=== PATIENT | male | born 1935 | race Caucasian/White ===

== ENCOUNTER 2024-09-14 14:09 | Inpatient (IN) | payer MEDICARE, SELFPAY ==
[2024-09-14] VITALS (7 sets, daily range): BP systolic 112–129; BP diastolic 49–70; PULSE 74–104; RESP 18–26; TEMP 36.3–36.4; O2SAT 95–97; BMI 17.8
--- NOTE | ~2024-09-14 | US_ITS ---
CLINICAL HISTORY: RLE edema Right lower extremity venous duplex ultrasound Comparison: None Findings: The visualized deep veins are fully compressible with complete color Doppler and normal spectral Doppler. Rouleaux flow is seen throughout. No popliteal cyst. Impression: No deep vein thrombosis. This document has been electronically signed by: Mora Sterling MD on 09/14/2024 16:22:49
--- NOTE | ~2024-09-14 | XR_ITS ---
CLINICAL HISTORY: diminshed lung sounds Chest Radiograph Comparison: None Findings: No cardiomegaly. Status post CABG. Normal mediastinal contours. No pneumothorax. No opacity. No pleural effusion. Normal upper abdomen. No acute fracture. Impression: No acute findings. This document has been electronically signed by: Mora Sterling MD on 09/14/2024 16:46:16
--- NOTE | ~2024-09-14 | CT_ITS ---
CLINICAL HISTORY: lower abd pain. diarrhea CT abdomen and pelvis with contrast Comparison: None Findings: No consolidation at the lung bases. Unremarkable gallbladder. Low attenuating lesions in the liver measure up to 5.4 cm. Right renal cyst. Right nephrolithiasis is punctate. Moderate right hydroureteronephrosis. No left hydronephrosis or nephrolithiasis. There is a heterogeneous mass in the pelvis with calcifications measuring 12.2 x 12.8 x 10.7 cm. The mass extends along the superior aspect of the bladder with loss of the fat plane. The mass compresses the bladder. There are numerous stones in the posterior aspect of the bladder measuring up to 1.2 cm. The other solid organs are unremarkable. Small hiatal hernia. No bowel dilation. No definitive bowel wall thickening. The appendix is not visualized. Colonic diverticulosis. The right aspect of the sigmoid colon is in continuity with the mass (series 2 images 54 through 59). There is liquid stool throughout the colon No aneurysm. Severe calcified atherosclerotic disease. The pelvic mass displaces the right common/external iliac artery superiorly]. Small ascites. Extensive omental nodularity No acute osseous abnormality. Sacral perineural cysts. 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 The definitive origin of the mass is not identified. The mass may originate from or invade the bladder and colon. The mass obstructs the right distal ureter and causes moderate hydroureteronephrosis. 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 There is malignant ascites with omental caking. This document has been electronically signed by: Mora Sterling MD on 09/14/2024 17:09:35
--- NOTE | 2024-09-14 14:27 | ED_ITS ---
HPI - General Adult General Chief complaint: General Medical Stated complaint: RLE SWELLING X2D PER EMS Time Seen by Provider: 09/14/24 14:27 Source: patient, EMS, RN notes reviewed and old records reviewed Mode of arrival: EMS History of Present Illness ED Provider: Nicky Koenig PA-C HPI narrative: 88 y/o male with a PMHx quadruple bypass, HLD, presenting to the ED c/o atraumatic right lower extremity edema x4 days ago. Also reports increasing lethargy, generalized weakness, & lower abdominal pain w/diarrhea. Pts reports 25lb weight loss in the past 2 months & anorexia. states pt is unable to ambulate without assistance for the past few months, with multiple falls to knees due to weakness/legs giving out, w/o head trauma or LOC. Denies chest pain, SOB, nausea/vomiting, and lower extremity pain or discomfort. Related Data Allergies Allergy/AdvReac Type Severity Reaction Status Date / Time No Known Allergies Allergy Unverified 09/14/24 14:32 [No Known Allergies*] Review of Systems 2 Review of Systems: Yes all other systems are reviewed and are negative Constitutional: Constitutional: Reports as per HPI [facility] Past Medical History Attestation statement: The following information was validated with the patient. Source: old records reviewed Social History Social History Use of substances other than those prescribed or required for medical reasons: No Advance Directives: No Advance Directives Information Provided: Yes Physical Exam ED Vital Signs: Vital Signs - 24 hr 09/14/24 14:25 09/14/24 15:03 Temperature 97.4 F 97.6 F Pulse Rate 98 91 Respiratory Rate 18 22 H Blood Pressure 126/64 116/63 Pulse Oximetry 97 97 Oxygen Delivery Method Room Air Room Air BMI result Body Mass Index 17.8 Const General: cooperative, no acute distress and ill appearing chronically Orientation/consciousness: patient oriented x3 Limitations: no limitations HENMT Head: Yes normal to inspection and Yes atraumatic Ears: hearing grossly normal bilaterally General nose exam: Normal external nose present Face and sinus: Yes normal facial exam Eyes General: appearance normal, both eyes and all related structures EOM: EOMs intact bilaterally Neck Neck: Yes normal visual inspection and Yes no meningeal signs Resp Effort & Inspection: normal respiratory effort and no respiratory distress Auscultation: diminished lung sounds bilateral (> left) Cardio Rate: regular rate Heart sounds: S1 normal heart sound present and S2 normal heart sound present GI Inspection: Yes normal to inspection Palpation (GI): Soft to palpation, Tenderness to palpation present (GI) (lower abdomen w/guarding) with no rebound tenderness, no guarding and not rigid General: Yes no CVA tenderness Back/Spine/Pelvis Back: no CVA tenderness Skin Rashes: no rashes Wounds: no wounds Neuro General: patient oriented x3, tone normal and no meningeal signs Cranial nerves: Yes CN's II-XII intact bilaterally Gait exam (Neuro): Normal gait present Extrem General: Yes edema (4+ RLE pitting edema extending to thigh) Course Course Course Narrative: -1536--leukocytosis of 34.8 with 23% bands. Mild anemia, unknown baseline >> continued low suspicion for severe sepsis at this time > suspect lab abnormalities are from underlying undiagnosed malignancy, however will empirically cover with IV Cefepime -potassium 5.3, slightly hemolyzed. ANTHONY with a BUN of 44 and creatinine of 2.02 -CRP elevated to 9.6. -1630--ED care transferred to [facility] pending remaining labs, viral testing, CXR, ultrasound, and CT AP. Anticipated admission Medical Decision Making Medical Decision Making MDM Narrative: 88 y/o male with a PMHx quadruple bypass, HLD, presenting to the ED c/o atraumatic right lower extremity edema x4 days ago. Also reports increasing lethargy, generalized weakness, & lower abdominal pain w/diarrhea. Pts reports 25lb weight loss in the past 2 months & anorexia. On exam vital signs stable, NAD, chronically ill-appearing, diminished lung sounds throughout > left, abdomen soft with lower tenderness + guarding, +RLE 4+ pitting edema extending entire leg. Neurovascularly intact distally. Concern for DVT vs malignancy vs metabolic/infectious etiologies vs gastroenteritis. Rule out appendicitis/diverticulitis. Low suspicion for severe sepsis at this time. Lower suspicion for ACS/PE or dissection Plan: EKG, labs, UA, CXR, CT AP, ultrasound, anticipated admission Please refer to course for remaining clinical decision making, interpretation of labs/imaging results, and discussions with consultants and/or family members. Differential Diagnosis Differential Diagnoses: The differential diagnosis associated with the presentation includes As above Admission/Observation Consideration of admission/observation: Escalation of care including admission/observation considered Consult Healthcare Provider Management of the patient was discussed with: Hospitalist Lab Data MDM Lab Attestation statement: I reviewed the patient's lab results. 09/14/24 15:05 09/14/24 15:05 Labs: Lab Results 09/14/24 Range/Units 15:05 WBC 34.8 H* (4.8-10.8) X10*3/uL RBC 3.07 L (4.60-5.80) X10*6/uL Hgb 9.2 L (14.0-18.0) g/dl Hct 29.7 L (42.0-52.0) % MCV 96.7 (80.0-98.0) fL MCH 30.0 (27.0-33.0) pg MCHC 31.0 (31.0-36.0) g/dl RDW 16.1 H (11.0-16.0) % Plt Count 378 (160-400) X10*3/uL MPV 9.1 L (9.4-12.4) fL Immature Gran % (Auto) Cancelled Neut % (Auto) Cancelled Lymph % (Auto) Cancelled [place] % (Auto) Cancelled Eos % (Auto) Cancelled Baso % (Auto) Cancelled Lymph # (Auto) Cancelled [place] # (Auto) Cancelled Eos # (Auto) Cancelled Baso # (Auto) Cancelled Abs Immat Gran (auto) Cancelled Absolute Neuts (auto) Cancelled Absolute Nucleated RBC 0.000 (0.0-0.012) X10*3/uL Nucleated RBC % (auto) 0.0 (0.0-0.2) /100WBC Neutrophils % (Manual) 68 (45-73) % Band Neutrophils % 23 H (3-5) % Lymphocytes % (Manual) 3 L (20-40) % Monocytes % (Manual) 4 (2-11) % Eosinophils % (Manual) 2 (0-4) % Abs Neuts (Manual) 31.7 H (2.0-8.3) X10*3/uL Lymphocytes # (Manual) 1.0 L (1.2-4.9) X10*3/uL Monocytes # (Manual) 1.4 H (0.1-1.2) X10*3/uL Eosinophils # (Manual) 0.7 H (0.0-0.4) X10*3/uL Toxic Granulation PRESENT Toxic Vacuolation PRESENT Platelet Estimate NORMAL (NORMAL) Plt Morphology Comment NORMAL RBC Morphology NORMAL Smear Tech's Comments MANUAL DIFF Sodium 139 (135-145) mmol/L Potassium 5.3 H (3.3-5.1) mmol/L Chloride 105 (96-108) mmol/L Carbon Dioxide 22 (22-29) mmol/L Anion Gap 17 (12-20) BUN 44 H (9-16) mg/dL Creatinine 2.02 H (0.5-1.4) mg/dL Estim Creat Clear Calc 20.9 Estimated GFR 31 Random Glucose 96 (60-115) mg/dL Calcium 9.1 (8.4-10.2) mg/dL Magnesium 2.2 (1.6-2.6) mg/dL Total Bilirubin 0.3 (0.0-1.0) mg/dL Direct Bilirubin 0.1 (0.0-0.5) mg/dL AST 50 H (5-37) U/L ALT 35 (0-40) U/L Alkaline Phosphatase 107 (39-117) U/L C-Reactive Protein 9.67 H (< or = 0.50) mg/dL Total Protein 7.6 (6.5-8.0) g/dL Albumin 2.8 L (3.5-5.0) g/dL Lipase 14 (8-78) U/L Independent Interpretation I performed an independent interpretation of an: EKG (My interpretation EKG sinus rhythm with first-degree AV block rate of 92. QRS 112. Premature ventricular compresses no longer present when compared to prior. No STEMI), Plain X-Ray, Ultrasound and CT Scan Radiology Impression Discussion of test interpretation with radiology: I have reviewed the radiologist's reading. Independent Historian Clinical information obtained from an independent historian. History obtained from or confirmed by: Spouse and EMS External Record Review External record reviewed: Inpatient record, Office record, Outpatient record, Prior outpatient labs, Prior outpatient radiology, Primary care record and Outside ED record Tests considered The following testing was considered but not selected: As above Prescription Management I considered prescription management with: Other Chronic Conditions Patient?s care impacted by: Other (CAD) Social Determinants Patient?s care significantly limited by Social Determinants of Health including: Other Social Determinant of Health Critical Care Time Critical Care Time Critical Care Time: Yes Total Critical Care Time: 45 Attestation: I have personally provided critical care time exclusive of time spent on separately billable procedures. Time includes review of lab data, radiology results, discussion with consultants, and monitoring for potential decompensation. Intervention performed as documented. Discharge Plan Discharge Clinical Impression: Leukocytosis, Edema of right lower extremity, Abdominal pain Patient Disposition: Still a Patient Print Language: Luxembourger
--- NOTE | 2024-09-14 14:38 | ECG_ITS ---
Test Reason : TACHY Blood Pressure : */* mmHG Vent. Rate : 92 BPM Atrial Rate : 92 BPM P-R Int : 212 ms QRS Dur : 112 ms QT Int : 368 ms P-R-T Axes : 88 -64 91 degrees QTcB Int : 455 ms Sinus rhythm with 1st degree A-V block Left axis deviation RSR' or QR pattern in V1 suggests right ventricular conduction delay Nonspecific T wave abnormality Abnormal ECG When compared with ECG of 29-Oct-2015 09:06, Premature ventricular complexes are no longer Present RSR' pattern in V1 has replaced Right bundle branch block Referred By: Nicky Koenig Electronically Signed By: Deep Lares
[2024-09-14 15:12] LABS: Hematocrit 29.7 % (42.0-52.0); Hemoglobin 9.2 g/dl (14.0-18.0); Mean Corpuscular Volume 96.7 fL (80.0-98.0); Mean Platelet Volume 9.1 fL (9.4-12.4); Platelet Count 378 X10*3/uL (160-400); Red Blood Count 3.07 X10*6/uL (4.60-5.80); Red Cell Distribution Width 16.1 % (11.0-16.0)
[2024-09-14 15:14] LABS: White Blood Count 34.8 X10*3/uL (4.8-10.8)
--- NOTE | 2024-09-14 15:24 | PC.NURSE ---
Pt presents to ED via EMS from home, reports right lower leg edema/swelling X4 days. Called his PCP who told him to come in to ER due to possible clot. also reports general weakness, multiple falls to his knees (no head hits), and weight loss >20 pounds in last 2 months. Alert and oriented, breathing slightly elevated, skin pale and dry, pt very thin.
[2024-09-14 15:31] LABS: SLIDE REVIEW MANUAL DIFF
[2024-09-14 15:35] LABS: Neutrophils Percent Manual 68 % (45-73)
[2024-09-14 15:37] LABS: Band Neutrophils Percent 23 % (3-5); Eosinophils Absolute Manual 0.7 X10*3/uL (0.0-0.4); Eosinophils Percent Manual 2 % (0-4); Lymphocytes Percent Manual 3 % (20-40); Monocytes Absolute Manual 1.4 X10*3/uL (0.1-1.2); Monocytes Percent Manual 4 % (2-11); Neutrophils Absolute Manual 31.7 X10*3/uL (2.0-8.3)
[2024-09-14 15:38] LABS: RBC Morphology NORMAL; Toxic Granulation PRESENT
[2024-09-14 15:39] LABS: Platelet Estimate NORMAL (NORMAL); Platelet Morphology Comment NORMAL; Toxic Vacuolation PRESENT
[2024-09-14 15:42] LABS: Alanine Aminotransferase 35 U/L (0-40); Albumin Level 2.8 g/dL (3.5-5.0); Anion Gap 17 (12-20); Aspartate Amino Transferase 50 U/L (5-37); Bilirubin Direct 0.1 mg/dL (0.0-0.5); Bilirubin Total 0.3 mg/dL (0.0-1.0); Blood Urea Nitrogen 44 mg/dL (9-16); C Reactive Protein 9.67 mg/dL (< or = 0.50); Calcium 9.1 mg/dL (8.4-10.2); Carbon Dioxide 22 mmol/L (22-29); Chloride 105 mmol/L (96-108); Creatinine Clr Calc Pharmacy 20.9; Estimated Glomerular Filt Rate 31; Glucose Random 96 mg/dL (60-115); Lipase 14 U/L (8-78); Magnesium 2.2 mg/dL (1.6-2.6); Potassium 5.3 mmol/L (3.3-5.1); Sodium 139 mmol/L (135-145); Total Protein 7.6 g/dL (6.5-8.0)
[2024-09-14 15:55] LABS: Alkaline Phosphatase 107 U/L (39-117)
[2024-09-14 16:16] LABS: INTERNATIONAL NORM RATIO 1.1 (0.9-1.1); Prothrombin Time 12.3 SEC (10.9-12.4)
[2024-09-14 16:19] LABS: Partial Thromboplastin Time 27.3 SEC (26.0-36.8)
[2024-09-14 16:21] LABS: Erythrocyte Sedimentation Rate 107 MM/HR (0-15)
[2024-09-14] MEDS: cefEPime HCl/D5W 2 GM/50 ML PIGGYBACK IV (16:35)
[2024-09-14 16:39] LABS: Lactic Acid 3.8 mmol/L (0.5-2.0)
[2024-09-14] MEDS: SODIUM CHLORIDE 1689 ML IV (16:57)
[2024-09-14 17:05] LABS: Influenza A PCR NEGATIVE (Negative); Influenza B PCR NEGATIVE (Negative); Resp Syncy Virus RNA Qual PCR NEGATIVE (Negative); SARS COV2 PCR INHOUSE NEGATIVE (Negative)
[2024-09-14 17:31] LABS: Appearance Urine Turbid; Color Urine Dark Yellow; Glucose Urine UA Negative (Negative); Leukocyte Esterase Urine Moderate (2+) (Negative); Nitrite Urine Negative (Negative); PH 5.5 (5.0-9.0); UMIC TRIGGER UACC YES; Urine Blood Large (3+) (Negative); Urine Ketones Negative (Negative); Urine Protein 100 (2+) mg/dL (Neg-Trace)
[2024-09-14 17:44] LABS: Bacteria Urine Trace (None Seen); Granular Casts Urine Present; RBC Urine >20 /HPF (0-2); UACC Culture Trigger YES; WBC Urine >50 /HPF (0-5)
[2024-09-14 18:01] LABS: Reflex Lactate? Lactic Acid Added
--- NOTE | 2024-09-14 18:05 | PC.NURSE ---
Bladder scan done post void, only approx 75 mL void. Unable to complete bladder scan, multiple pockets of fluids in the pelvic area. Very hard to find the bladder. Provider aware and reported to hold off on the styles
--- NOTE | 2024-09-14 18:28 | PHA.MEDREC ---
Addendum entered by Toña Godwin RPh 09/14/24 18:47: reviewed by [facility]. Original Note: Pharmacy Consult ? Medication Reconciliation Pharmacy has completed the medication reconciliation. Spoke to pt's spouse to confirm meds, which brought a list.
[2024-09-14 18:41] LABS: ~Lactic Acid-LAB USE ONLY 1.8 mmol/L (0.5-2.0)
--- NOTE | 2024-09-14 18:48 | P.HPHOSP_ITS ---
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 Today had some blood in his urine. In the ED, found to have leukocytosis of 34.8k with 23% bands as well as ANHTONY with SCr 2.02 with baseline of 1 per [facility] records. Lactate of 3.8. No DVT on venous duplx US of the legs. CT of the abdomen and pelvis showed a large 12.8 cm pelvic mass; unclear whether it originates in the colon or the bladder. It is causing obstruction of the right distal ureter with moderate hydronephrosis. There are hepatic metastases and omental caking with ascites. He was given cefepime due to pyuria and bacteruria. He states he had a Cologuard 2-3 years ago that was normal. Prior colonoscopy over 10 years ago and no history of abnromality on scope. Review of Systems 2 Review of Systems: Yes all other systems are reviewed and are negative PMFSH Social History Patient Tobacco Use Status: Never used Tobacco Use of substances other than those prescribed or required for medical reasons: No Advance Directives: No Advance Directives Information Provided: Yes Nutrition Risks: No Nutritional Risk Meds Allergies Allergy/AdvReac Type Severity Reaction Status Date / Time No Known Allergies Allergy Unverified 09/14/24 14:32 [No Known Allergies*] Active Medications: Current Medications Atorvastatin Calcium (Atorvastatin Calcium 20 Mg Tablet) 20 mg PO DAILY [facility] Carvedilol (Carvedilol 3.125 Mg Tablet) 3.125 mg PO BID [facility]; Protocol Home Medications ?Medication ?Instructions ?Recorded ?Confirmed ?Last Taken ?Type aspirin 81 mg tablet,delayed 81 mg PO DAILY 09/14/24 09/14/24 09/14/24 09:00 History release atorvastatin 20 mg tablet 20 mg PO DAILY 09/14/24 09/14/24 09/14/24 09:00 History carvedilol 3.125 mg tablet 3.125 mg PO BIDWM 09/14/24 09/14/24 09/14/24 09:00 History tamsulosin 0.4 mg capsule 0.4 mg PO DAILY 09/14/24 09/14/24 09/14/24 09:00 History vitamin B complex 1 cap PO DAILY 09/14/24 09/14/24 09/14/24 09:00 History Physical Exam 2 Vital Signs and Narrative: Vital Signs: Last Vital Signs Temp 97.6 F 09/14/24 15:03 Pulse 104 H 09/14/24 18:17 Resp 22 H 09/14/24 18:17 BP 118/63 09/14/24 18:17 Pulse Ox 95 09/14/24 18:07 O2 Del Method Room Air 09/14/24 18:07 BMI result Body Mass Index 17.8 Gen: in no acute distress but thin/cachectic with muscle wasting apparent HEENT: sclera anicteric, moist mucus membranes Neck: supple Lungs: clear to auscultation bilaterally Heart: regular rate and rhythm, no murmurs Abd: distended but non-tender with small fluid wave Ext: 3+ RLE edema Skin: warm/well-perfused Neuro: alert and oriented x3, no focal findings Psych: appropriate affect Results Labs 09/15/24 04:34 09/15/24 04:34 Labs: Laboratory Results - last 24 hr 09/14/24 09/14/24 09/14/24 15:05 15:56 15:57 MCV 96.7 MCH 30.0 MCHC 31.0 RDW 16.1 H Plt Count 378 MPV 9.1 L Immature Gran % (Auto) Cancelled Neut % (Auto) Cancelled Lymph % (Auto) Cancelled [place] % (Auto) Cancelled Eos % (Auto) Cancelled Baso % (Auto) Cancelled Lymph # (Auto) Cancelled [place] # (Auto) Cancelled Eos # (Auto) Cancelled Baso # (Auto) Cancelled Abs Immat Gran (auto) Cancelled Absolute Neuts (auto) Cancelled Absolute Nucleated RBC 0.000 Nucleated RBC % (auto) 0.0 Neutrophils % (Manual) 68 Band Neutrophils % 23 H Lymphocytes % (Manual) 3 L Monocytes % (Manual) 4 Eosinophils % (Manual) 2 Abs Neuts (Manual) 31.7 H Lymphocytes # (Manual) 1.0 L Monocytes # (Manual) 1.4 H Eosinophils # (Manual) 0.7 H Toxic Granulation PRESENT Toxic Vacuolation PRESENT Platelet Estimate NORMAL Plt Morphology Comment NORMAL RBC Morphology NORMAL Smear Tech's Comments MANUAL DIFF ESR 107 H PT 12.3 INR 1.1 APTT 27.3 Anion Gap 17 Estim Creat Clear Calc 20.9 Estimated GFR 31 Random Glucose 96 Lactic Acid 3.8 H* Lactic Acid F/U @ 2Hr Calcium 9.1 Magnesium 2.2 Total Bilirubin 0.3 Direct Bilirubin 0.1 AST 50 H ALT 35 Alkaline Phosphatase 107 C-Reactive Protein 9.67 H Total Protein 7.6 Albumin 2.8 L Lipase 14 Urine Color Urine Appearance Urine pH Ur Specific [place] Urine Protein Urine Glucose (UA) Urine Ketones Urine Blood Urine Nitrite Ur Leukocyte Esterase Urine RBC Urine WBC Ur Squamous Epith Cells Urine Bacteria Hyaline Casts Granular Casts Influenza Type A (PCR) NEGATIVE Influenza Type B (PCR) NEGATIVE RSV RNA Qual (PCR) NEGATIVE SARS-CoV-2 RNA (RT-PCR) NEGATIVE 09/14/24 09/14/24 17:25 18:18 MCV MCH MCHC RDW Plt Count MPV Immature Gran % (Auto) Neut % (Auto) Lymph % (Auto) [place] % (Auto) Eos % (Auto) Baso % (Auto) Lymph # (Auto) [place] # (Auto) Eos # (Auto) Baso # (Auto) Abs Immat Gran (auto) Absolute Neuts (auto) Absolute Nucleated RBC Nucleated RBC % (auto) Neutrophils % (Manual) Band Neutrophils % Lymphocytes % (Manual) Monocytes % (Manual) Eosinophils % (Manual) Abs Neuts (Manual) Lymphocytes # (Manual) Monocytes # (Manual) Eosinophils # (Manual) Toxic Granulation Toxic Vacuolation Platelet Estimate Plt Morphology Comment RBC Morphology Smear Tech's Comments ESR PT INR APTT Anion Gap Estim Creat Clear Calc Estimated GFR Random Glucose Lactic Acid Lactic Acid F/U @ 2Hr 1.8 Calcium Magnesium Total Bilirubin Direct Bilirubin AST ALT Alkaline Phosphatase C-Reactive Protein Total Protein Albumin Lipase Urine Color Dark Yellow Urine Appearance Turbid Urine pH 5.5 Ur [address] [place] 1.020 Urine Protein 100 (2+) H Urine Glucose (UA) Negative Urine Ketones Negative Urine Blood Large (3+) H Urine Nitrite Negative Ur Leukocyte Esterase Moderate (2+) H Urine RBC >20 H Urine WBC >50 H Ur Squamous Epith Cells 11-20 Urine Bacteria Trace Hyaline Casts 6-10 Granular Casts Present Influenza Type A (PCR) Influenza Type B (PCR) RSV RNA Qual (PCR) SARS-CoV-2 RNA (RT-PCR) Imaging Radiologist's Impressions: CT A/P 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 The definitive origin of the mass is not identified. The mass may originate from or invade the bladder and colon. The mass obstructs the right distal ureter and causes moderate hydroureteronephrosis. 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 There is malignant ascites with omental caking. RLE venous duplex US No deep vein thrombosis. Assessment and Plan (1) Pelvic mass: Status: Acute Plan 88yo M with CAD s/p CABG presenting with 2 mo of involuntary weight loss and 4 days of RLE leg swelling, abominal discomfort, and now 1 day of intermittent hematuria. Found to have large pelvic mass with obstructive hydroureteronephrosis. Unclear whether mass originates from colon or bladder. There are hepatic metastases and omental caking with ascites. 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 Consult Oncology, Gen Surg, and Urology. Paracentesis with cytology in AM. NPO after midnight in case of any surgical procedures. SIRS physiology + lactic acidosis - Was empirically covered with cefepime and got IV fluids but suspect this is due to malignancy and not due to sepsis, severe or otherwise. However, will continue with antibiotic coverage with ceftriaxone for now. Obstructive ANTHONY - Montior SCr. Place Sam Moderate pr/dixie malnutrition - Supplements CAD - Hold ASA for hematuria; continue statin and carvedilol VTE ppx - SCDs; hold heparin due to hematuria dispo - TBD code status - DNR/DNI per pt's I anticipate that the patient will stay at least 2 midnights as an inpatient in the hospital due to the above reasons. It is neither reasonable nor safe to care for them in a less acute setting. Quality Stroke Does the patient have a stroke diagnosis?: No VTE Prior VTE?: No VTE Risk Level:: Medical - moderate - high VTE Device Contraindication: N/A - Device Ordered VTE Drug Contraindication: Treatment Not Indicated
--- NOTE | 2024-09-14 19:54 | P.HPGS_ITS ---
History of Present Illness History of Present Illness Date of Service: 09/16/24 Chief complaint: pelvic mass, ANTHONY, malignant ascities Narrative: Luis Herron is a 88 year old male history of coronary disease, with status post CABG, was brought to the ER today because of what he describes as swelling of his right lower leg and foot. This has been going on for several days. He describes discomfort with this. He also mentioned that he was having abdominal discomfort on lower abdomen. He says that this is not really pain. Therefore had a CT scan which showed a large pelvic mass 12.7 cm in diameter He also has associated hydronephrosis on the right side He says he has good bowel movements. He denies having constipation or diarrhea. He denies any nausea or vomiting. He says he does not really have abdominal pain and says he has more of discomfort on the lower abdomen. He denies problems with urination. He does admit to anorexia and some weight loss. He says that he may have lost about 10 lb the last 2 months or so. He says he had a Cologuard test about 4 years ago he was told this was normal He is uncertain if we ever had any colonoscopy in the past. Review of his records also show he had a stroke in 2016. Review of Systems Constitutional: Constitutional: Denies chills, Denies fever(s), Reports lethargy, Reports weakness and Reports weight loss Cardiovascular: Cardiovascular: Denies chest pain, Denies chest pain at rest and Denies dyspnea Respiratory: Respiratory: Denies cough and Denies dyspnea Gastrointestinal: Gastrointestinal: Denies hematochezia, Denies change in bowel habits and Denies constipation Comments: Lower abdominal discomfort Genitourinary: Genitourinary: Denies difficulty urinating Musculoskeletal: Musculoskeletal: Reports muscle weakness Neurologic: Reports weakness ON LICENSE OF [facility] Social History Social History Patient Tobacco Use Status: Never used Tobacco service: No Meds Allergies Allergy/AdvReac Type Severity Reaction Status Date / Time No Known Allergies Allergy Unverified 09/14/24 14:32 [No Known Allergies*] Active Medications: Current Medications Acetaminophen (Acetaminophen 325 Mg Tablet) 650 mg PO Q6H PRN PRN Reason: Pain, Mild 1-3,fever,headache Atorvastatin Calcium (Atorvastatin Calcium 20 Mg Tablet) 20 mg PO DAILY ROBYN Calcium Carbonate (Calcium Carbonate 750 Mg Tab.Chew) 750 mg PO Q4H PRN PRN Reason: Heartburn Carvedilol (Carvedilol 3.125 Mg Tablet) 3.125 mg PO BID [facility]; Protocol Magnesium Hydroxide (Milk Of Magnesia 30 Ml Oral.Susp) 30 ml PO DAILY PRN PRN Reason: Constipation Melatonin (Melatonin 3 Mg Tablet) 6 mg PO BEDTIME PRN PRN Reason: Insomnia Ondansetron HCl (Ondansetron Hcl 4 Mg/2 Ml Vial) 4 mg IVPUSH Q8H PRN PRN Reason: Nausea and Vomiting Sodium Chloride (0.9 % Sodium Chloride Flush 3 Ml Syringe) 3 ml IVFLUSH QSHIFT [facility] Home Medications ?Medication ?Instructions ?Recorded ?Confirmed ?Last Taken ?Type tamsulosin 0.4 mg capsule 0.4 mg PO DAILY 09/14/24 09/14/24 09/14/24 09:00 History Physical Exam Vital Signs: Vital Signs: Last Vital Signs Temp 97.6 F 09/14/24 15:03 Pulse 104 H 09/14/24 18:17 Resp 22 H 09/14/24 18:17 BP 118/63 09/14/24 18:17 Pulse Ox 95 09/14/24 18:07 O2 Del Method Room Air 09/14/24 18:07 BMI result Body Mass Index 17.8 Const: Other: Answers questions although does not seem to be very good historian General: comfortable and no acute distress Orientation/consciousness: patient oriented x3 Neck: Neck: Yes no lymphadenopathy Resp: Auscultation: clear to auscultation bilaterally Cardio: Rhythm: regular rhythm GI: Other: Mild lower abdominal tenderness with vague fullness Palpation (GI): Soft to palpation, nontender and no guarding Neuro: General: patient oriented x3 Results Results Labs: Short CBC 09/14/24 Range/Units 15:05 WBC 34.8 H* (4.8-10.8) X10*3/uL Hgb 9.2 L (14.0-18.0) g/dl Hct 29.7 L (42.0-52.0) % Plt Count 378 (160-400) X10*3/uL BMP 09/14/24 15:05 Sodium 139 Potassium 5.3 H Chloride 105 Carbon Dioxide 22 BUN 44 H Creatinine 2.02 H Calcium 9.1 Liver Function 09/14/24 Range/Units 15:05 Total Bilirubin 0.3 (0.0-1.0) mg/dL Direct Bilirubin 0.1 (0.0-0.5) mg/dL AST 50 H (5-37) U/L ALT 35 (0-40) U/L Alkaline Phosphatase 107 (39-117) U/L Albumin 2.8 L (3.5-5.0) g/dL Urine 09/14/24 Range/Units 17:25 Urine Color Dark Yellow Urine Appearance Turbid Urine pH 5.5 (5.0-9.0) Ur Specific [place] 1.020 (1.005-1.025) Urine Protein 100 (2+) H (Neg-Trace) mg/dL Urine Glucose (UA) Negative (Negative) mg/dL Laboratory Results WBC 34.8 X10*3/uL (4.8-10.8) H* 09/14/24 15:05 RBC 3.07 X10*6/uL (4.60-5.80) L 09/14/24 15:05 Hgb 9.2 g/dl (14.0-18.0) L 09/14/24 15:05 Hct 29.7 % (42.0-52.0) L 09/14/24 15:05 MCV 96.7 fL (80.0-98.0) 09/14/24 15:05 MCH 30.0 pg (27.0-33.0) 09/14/24 15:05 MCHC 31.0 g/dl (31.0-36.0) 09/14/24 15:05 RDW 16.1 % (11.0-16.0) H 09/14/24 15:05 Plt Count 378 X10*3/uL (160-400) 09/14/24 15:05 MPV 9.1 fL (9.4-12.4) L 09/14/24 15:05 Immature Gran % (Auto) Cancelled 09/14/24 15:05 Neut % (Auto) Cancelled 09/14/24 15:05 Lymph % (Auto) Cancelled 09/14/24 15:05 [facility] % (Auto) Cancelled 09/14/24 15:05 Eos % (Auto) Cancelled 09/14/24 15:05 Baso % (Auto) Cancelled 09/14/24 15:05 Lymph # (Auto) Cancelled 09/14/24 15:05 [facility] # (Auto) Cancelled 09/14/24 15:05 Eos # (Auto) Cancelled 09/14/24 15:05 Baso # (Auto) Cancelled 09/14/24 15:05 Abs Immat Gran (auto) Cancelled 09/14/24 15:05 Absolute Neuts (auto) Cancelled 09/14/24 15:05 Absolute Nucleated RBC 0.000 X10*3/uL (0.0-0.012) 09/14/24 15:05 Nucleated RBC % (auto) 0.0 /100WBC (0.0-0.2) 09/14/24 15:05 Neutrophils % (Manual) 68 % (45-73) 09/14/24 15:05 Band Neutrophils % 23 % (3-5) H 09/14/24 15:05 Lymphocytes % (Manual) 3 % (20-40) L 09/14/24 15:05 Monocytes % (Manual) 4 % (2-11) 09/14/24 15:05 Eosinophils % (Manual) 2 % (0-4) 09/14/24 15:05 Abs Neuts (Manual) 31.7 X10*3/uL (2.0-8.3) H 09/14/24 15:05 Lymphocytes # (Manual) 1.0 X10*3/uL (1.2-4.9) L 09/14/24 15:05 Monocytes # (Manual) 1.4 X10*3/uL (0.1-1.2) H 09/14/24 15:05 Eosinophils # (Manual) 0.7 X10*3/uL (0.0-0.4) H 09/14/24 15:05 Toxic Granulation PRESENT 09/14/24 15:05 Toxic Vacuolation PRESENT 09/14/24 15:05 Platelet Estimate NORMAL (NORMAL) 09/14/24 15:05 Plt Morphology Comment NORMAL 09/14/24 15:05 RBC Morphology NORMAL 09/14/24 15:05 Smear Tech's Comments MANUAL DIFF 09/14/24 15:05 ESR 107 MM/HR (0-15) H 09/14/24 15:05 PT 12.3 SEC (10.9-12.4) 09/14/24 15:57 INR 1.1 (0.9-1.1) 09/14/24 15:57 APTT 27.3 SEC (26.0-36.8) 09/14/24 15:57 Sodium 139 mmol/L (135-145) 09/14/24 15:05 Potassium 5.3 mmol/L (3.3-5.1) H 09/14/24 15:05 Chloride 105 mmol/L (96-108) 09/14/24 15:05 Carbon Dioxide 22 mmol/L (22-29) 09/14/24 15:05 Anion Gap 17 (12-20) 09/14/24 15:05 BUN 44 mg/dL (9-16) H 09/14/24 15:05 Creatinine 2.02 mg/dL (0.5-1.4) H 09/14/24 15:05 Estim Creat Clear Calc 20.9 09/14/24 15:05 Estimated GFR 31 09/14/24 15:05 Random Glucose 96 mg/dL (60-115) 09/14/24 15:05 Lactic Acid 3.8 mmol/L (0.5-2.0) H* 09/14/24 15:57 Lactic Acid F/U @ 2Hr 1.8 mmol/L (0.5-2.0) 09/14/24 18:18 Calcium 9.1 mg/dL (8.4-10.2) 09/14/24 15:05 Magnesium 2.2 mg/dL (1.6-2.6) 09/14/24 15:05 Total Bilirubin 0.3 mg/dL (0.0-1.0) 09/14/24 15:05 Direct Bilirubin 0.1 mg/dL (0.0-0.5) 09/14/24 15:05 AST 50 U/L (5-37) H 09/14/24 15:05 ALT 35 U/L (0-40) 09/14/24 15:05 Alkaline Phosphatase 107 U/L (39-117) 09/14/24 15:05 C-Reactive Protein 9.67 mg/dL (< or = 0.50) H 09/14/24 15:05 Total Protein 7.6 g/dL (6.5-8.0) 09/14/24 15:05 Albumin 2.8 g/dL (3.5-5.0) L 09/14/24 15:05 Lipase 14 U/L (8-78) 09/14/24 15:05 Urine Color Dark Yellow 09/14/24 17:25 Urine Appearance Turbid 09/14/24 17:25 Urine pH 5.5 (5.0-9.0) 09/14/24 17:25 Ur Specific [place] 1.020 (1.005-1.025) 09/14/24 17:25 Urine Protein 100 (2+) mg/dL (Neg-Trace) H 09/14/24 17:25 Urine Glucose (UA) Negative mg/dL (Negative) 09/14/24 17: Urine Ketones Negative mg/dL (Negative) 09/14/24 17: Urine Blood Large (3+) (Negative) H 09/14/24 17:25 Urine Nitrite Negative (Negative) 09/14/24 17:25 Ur Leukocyte Esterase Moderate (2+) (Negative) H 09/14/24 17:25 Urine RBC >20 /HPF (0-2) H 09/14/24 17:25 Urine WBC >50 /HPF (0-5) H 09/14/24 17:25 Ur Squamous Epith Cells 11-20 /HPF (0-2) 09/14/24 17:25 Urine Bacteria Trace (None Seen) 09/14/24 17:25 Hyaline Casts 6-10 /LPF (0-2) 09/14/24 17:25 Granular Casts Present 09/14/24 17:25 Influenza Type A (PCR) NEGATIVE (Negative) 09/14/24 15:56 Influenza Type B (PCR) NEGATIVE (Negative) 09/14/24 15:56 RSV RNA Qual (PCR) NEGATIVE (Negative) 09/14/24 15:56 SARS-CoV-2 RNA (RT-PCR) NEGATIVE (Negative) 09/14/24 15:56 Laboratory Results WBC 34.8 X10*3/uL (4.8-10.8) H* 09/14/24 15:05 RBC 3.07 X10*6/uL (4.60-5.80) L 09/14/24 15:05 Hgb 9.2 g/dl (14.0-18.0) L 09/14/24 15:05 Hct 29.7 % (42.0-52.0) L 09/14/24 15:05 MCV 96.7 fL (80.0-98.0) 09/14/24 15:05 MCH 30.0 pg (27.0-33.0) 09/14/24 15:05 MCHC 31.0 g/dl (31.0-36.0) 09/14/24 15:05 RDW 16.1 % (11.0-16.0) H 09/14/24 15:05 Plt Count 378 X10*3/uL (160-400) 09/14/24 15:05 MPV 9.1 fL (9.4-12.4) L 09/14/24 15:05 Immature Gran % (Auto) Cancelled 09/14/24 15:05 Neut % (Auto) Cancelled 09/14/24 15:05 Lymph % (Auto) Cancelled 09/14/24 15:05 [facility] % (Auto) Cancelled 09/14/24 15:05 Eos % (Auto) Cancelled 09/14/24 15:05 Baso % (Auto) Cancelled 09/14/24 15:05 Lymph # (Auto) Cancelled 09/14/24 15:05 [facility] # (Auto) Cancelled 09/14/24 15:05 Eos # (Auto) Cancelled 09/14/24 15:05 Baso # (Auto) Cancelled 09/14/24 15:05 Abs Immat Gran (auto) Cancelled 09/14/24 15:05 Absolute Neuts (auto) Cancelled 09/14/24 15:05 Absolute Nucleated RBC 0.000 X10*3/uL (0.0-0.012) 09/14/24 15:05 Nucleated RBC % (auto) 0.0 /100WBC (0.0-0.2) 09/14/24 15:05 Neutrophils % (Manual) 68 % (45-73) 09/14/24 15:05 Band Neutrophils % 23 % (3-5) H 09/14/24 15:05 Lymphocytes % (Manual) 3 % (20-40) L 09/14/24 15:05 Monocytes % (Manual) 4 % (2-11) 09/14/24 15:05 Eosinophils % (Manual) 2 % (0-4) 09/14/24 15:05 Abs Neuts (Manual) 31.7 X10*3/uL (2.0-8.3) H 09/14/24 15:05 Lymphocytes # (Manual) 1.0 X10*3/uL (1.2-4.9) L 09/14/24 15:05 Monocytes # (Manual) 1.4 X10*3/uL (0.1-1.2) H 09/14/24 15:05 Eosinophils # (Manual) 0.7 X10*3/uL (0.0-0.4) H 09/14/24 15:05 Toxic Granulation PRESENT 09/14/24 15:05 Toxic Vacuolation PRESENT 09/14/24 15:05 Platelet Estimate NORMAL (NORMAL) 09/14/24 15:05 Plt Morphology Comment NORMAL 09/14/24 15:05 RBC Morphology NORMAL 09/14/24 15:05 Smear Tech's Comments MANUAL DIFF 09/14/24 15:05 ESR 107 MM/HR (0-15) H 09/14/24 15:05 PT 12.3 SEC (10.9-12.4) 09/14/24 15:57 INR 1.1 (0.9-1.1) 09/14/24 15:57 APTT 27.3 SEC (26.0-36.8) 09/14/24 15:57 Sodium 139 mmol/L (135-145) 09/14/24 15:05 Potassium 5.3 mmol/L (3.3-5.1) H 09/14/24 15:05 Chloride 105 mmol/L (96-108) 09/14/24 15:05 Carbon Dioxide 22 mmol/L (22-29) 09/14/24 15:05 Anion Gap 17 (12-20) 09/14/24 15:05 BUN 44 mg/dL (9-16) H 09/14/24 15:05 Creatinine 2.02 mg/dL (0.5-1.4) H 09/14/24 15:05 Estim Creat Clear Calc 20.9 09/14/24 15:05 Estimated GFR 31 09/14/24 15:05 Random Glucose 96 mg/dL (60-115) 09/14/24 15:05 Lactic Acid 3.8 mmol/L (0.5-2.0) H* 09/14/24 15:57 Lactic Acid F/U @ 2Hr 1.8 mmol/L (0.5-2.0) 09/14/24 18:18 Calcium 9.1 mg/dL (8.4-10.2) 09/14/24 15:05 Magnesium 2.2 mg/dL (1.6-2.6) 09/14/24 15:05 Total Bilirubin 0.3 mg/dL (0.0-1.0) 09/14/24 15:05 Direct Bilirubin 0.1 mg/dL (0.0-0.5) 09/14/24 15:05 AST 50 U/L (5-37) H 09/14/24 15:05 ALT 35 U/L (0-40) 09/14/24 15:05 Alkaline Phosphatase 107 U/L (39-117) 09/14/24 15:05 C-Reactive Protein 9.67 mg/dL (< or = 0.50) H 09/14/24 15:05 Total Protein 7.6 g/dL (6.5-8.0) 09/14/24 15:05 Albumin 2.8 g/dL (3.5-5.0) L 09/14/24 15:05 Lipase 14 U/L (8-78) 09/14/24 15:05 Urine Color Dark Yellow 09/14/24 17:25 Urine Appearance Turbid 09/14/24 17:25 Urine pH 5.5 (5.0-9.0) 09/14/24 17:25 Ur Specific [place] 1.020 (1.005-1.025) 09/14/24 17:25 Urine Protein 100 (2+) mg/dL (Neg-Trace) H 09/14/24 17:25 Urine Glucose (UA) Negative mg/dL (Negative) 09/14/24 17: Urine Ketones Negative mg/dL (Negative) 09/14/24 17: Urine Blood Large (3+) (Negative) H 09/14/24 17: Urine Nitrite Negative (Negative) 09/14/24 17:25 Ur Leukocyte Esterase Moderate (2+) (Negative) H 09/14/24 17:25 Urine RBC >20 /HPF (0-2) H 09/14/24 17:25 Urine WBC >50 /HPF (0-5) H 09/14/24 17:25 Ur Squamous Epith Cells 11-20 /HPF (0-2) 09/14/24 17:25 Urine Bacteria Trace (None Seen) 09/14/24 17:25 Hyaline Casts 6-10 /LPF (0-2) 09/14/24 17:25 Granular Casts Present 09/14/24 17:25 Influenza Type A (PCR) NEGATIVE (Negative) 09/14/24 15:56 Influenza Type B (PCR) NEGATIVE (Negative) 09/14/24 15:56 RSV RNA Qual (PCR) NEGATIVE (Negative) 09/14/24 15:56 SARS-CoV-2 RNA (RT-PCR) NEGATIVE (Negative) 09/14/24 15:56 CT scan: 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 The definitive origin of the mass is not identified. The mass may originate from or invade the bladder and colon. The mass obstructs the right distal ureter and causes moderate hydroureteronephrosis. 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 There is malignant ascites with omental caking. Abdomen CT scan report/results: report reviewed and image reviewed CT scan - pelvis: report reviewed and image reviewed Assessment and Plan (1) Pelvic mass: Status: Acute He actually is here in the ER for right foot and lower leg swelling. He describes some lower abdominal discomfort. His CAT scan shows this large pelvic mass, about 12.8 cm in widest dimension, along with omental caking, and hepatic lesions consistent with a metastasis. Etiology of his pelvic mass is uncertain. He does not have any evidence of obstruction of the colon. There is subsequent right hydronephrosis because of this mass. His right lower extremity swelling may be related to obstructed venous and lymphatic return on the right lower extremity. His abdominal exam is very benign. In view of the extent of his neoplastic disease, treatment will be palliative. If he shows signs of obstruction of the colon, we may be able to do a diverting loop colostomy. He does not present with of obstruction at this time . He is awaiting evaluation by the urologist as well I have ordered for tumor markers including CEA, CA 19 9, PSA and CA 125. Oncology should also be consulted. His initial lactate was elevated but this has normalized with IV fluids. This is likely secondary to dehydration. He does not appear septic at this time. I will follow along while he is in the hospital. Quality Stroke Does the patient have a stroke diagnosis?: No VTE Prior VTE?: No VTE Risk Level:: Medical - moderate - high VTE Device Contraindication: N/A - Device Ordered VTE Drug Contraindication: Treatment Not Indicated Procedures Date of Service Date of Service: 09/16/24
[2024-09-14] MEDS: carvediloL 3.125 MG TABLET PO (21:24)
[2024-09-15] VITALS (7 sets, daily range): BP systolic 117–131; BP diastolic 58–85; PULSE 50–105; RESP 15–25; TEMP 36.3–36.9; O2SAT 96–98
[2024-09-15] MEDS: 0.9 % Sodium Chloride Flush 3 ML SYRINGE IVFLUSH ×2 (01:16→08:19)
[2024-09-15 04:21] LABS: B Type Natriuretic Peptide 159 pg/mL (<100)
[2024-09-15 05:29] LABS: Hematocrit 27.5 % (42.0-52.0); Hemoglobin 8.4 g/dl (14.0-18.0); Mean Corpuscular HGB Conc 30.5 g/dl (31.0-36.0); Mean Corpuscular Volume 98.2 fL (80.0-98.0); Mean Platelet Volume 9.4 fL (9.4-12.4); Platelet Count 374 X10*3/uL (160-400); Red Cell Distribution Width 16.1 % (11.0-16.0)
[2024-09-15 05:33] LABS: White Blood Count 30.6 X10*3/uL (4.8-10.8)
[2024-09-15 05:46] LABS: Anion Gap 14 (12-20); Blood Urea Nitrogen 45 mg/dL (9-16); Calcium 8.7 mg/dL (8.4-10.2); Carbon Dioxide 23 mmol/L (22-29); Chloride 108 mmol/L (96-108); Creatinine Clr Calc Pharmacy 24.1; Estimated Glomerular Filt Rate 37; Glucose Random 85 mg/dL (60-115); Potassium 4.6 mmol/L (3.3-5.1); Sodium 140 mmol/L (135-145)
[2024-09-15] MEDS: Atorvastatin Calcium 20 MG TABLET PO (08:19)
[2024-09-15] MEDS: carvediloL 3.125 MG TABLET PO (08:19)
[2024-09-15] MEDS: cefTRIAXone sodium 1 GM VIAL IVPUSH (09:09)
--- NOTE | 2024-09-15 10:07 | PM.HEMONCCN ---
Subjective - Subjective Chief complaint: Right leg swelling Patient: new to practice Consult date: 09/15/24 Primary Care Provider: Lula Atwood MD HPI - Consult Narrative Reason for consult: Pelvic mass/probable malignancy Narrative: Luis Herron is a 88 year old male who is presenting today at the emergency department with complaints of right leg swelling. His who is at the bedside is the main historian. According to her patient has been getting progressively weak in the last 2 months. He had over 20 lb weight loss in the last 2 months, his appetite is very poor, he is predominantly bed-bound. He had his physician, PCP visit him at home in August and he was recommended nutrition supplements because of his ongoing weight loss. Patient denies any abdominal pain although he reports distention of the abdomen. No chest pain or shortness of breath. No fever or chills. No dysuria or hematuria. He has not been eating much therefore he is slightly constipated. Workup performed in the ED, CT abdomen/pelvis showed a large 12.8 cm pelvic mass causing obstruction of right distal ureter with moderate hydronephrosis. Hepatic metastasis with omental caking and mild ascites was noted. Right lower extremity Doppler was negative for DVT. Review of Systems - Constitutional Reports as per HPI, Reports fatigue, Reports lack of energy, Reports malaise, Reports poor appetite, Reports weight loss - Neurologic Reports weakness Oncology Screenings - ECOG Performance Status ECOG Performance Status: 3 [facility] Social History: Social History (Last Reviewed 09/14/24 @ 15:29 by NETTE Castillo) Alcohol History Details: 1. How often do you have a drink containing alcohol?: a. Never AUDIT-C Alcohol total score: 0 Tobacco History: Patient Tobacco Use Status: Never used Tobacco Substance Use History: Use of substances other than those prescribed or required for medical reasons: No Advance Directives: Advance Directives: No Advance Directives Information Provided: Yes Nutrition Assessment: Nutrition Risks: No Nutritional Risk Home Medications and Allergies Current Medications: Current Medications Acetaminophen (Acetaminophen 325 Mg Tablet) 650 mg PO Q6H PRN PRN Reason: Pain, Mild 1-3,fever,headache Atorvastatin Calcium (Atorvastatin Calcium 20 Mg Tablet) 20 mg PO DAILY ROBYN Last Admin: 09/15/24 08:19 Dose: 20 mg Calcium Carbonate (Calcium Carbonate 750 Mg Tab.Chew) 750 mg PO Q4H PRN PRN Reason: Heartburn Carvedilol (Carvedilol 3.125 Mg Tablet) 3.125 mg PO BID [facility]; Protocol Last Admin: 09/15/24 08:19 Dose: 3.125 mg Ceftriaxone Sodium (Ceftriaxone Sodium 1 Gm Vial) 1 gm IVPUSH Q24H [facility] Last Admin: 09/15/24 09:09 Dose: 1 gm Magnesium Hydroxide (Milk Of Magnesia 30 Ml Oral.Susp) 30 ml PO DAILY PRN PRN Reason: Constipation Melatonin (Melatonin 3 Mg Tablet) 6 mg PO BEDTIME PRN PRN Reason: Insomnia Ondansetron HCl (Ondansetron Hcl 4 Mg/2 Ml Vial) 4 mg IVPUSH Q8H PRN PRN Reason: Nausea and Vomiting Sodium Chloride (0.9 % Sodium Chloride Flush 3 Ml Syringe) 3 ml IVFLUSH QSHIFT [facility] Last Admin: 09/15/24 08:19 Dose: 3 ml Home Medications ?Medication ?Instructions ?Recorded ?Confirmed ?Type aspirin 81 mg tablet,delayed 81 mg PO DAILY 09/14/24 09/14/24 History release atorvastatin 20 mg tablet 20 mg PO DAILY 09/14/24 09/14/24 History carvedilol 3.125 mg tablet 3.125 mg PO BIDWM 09/14/24 09/14/24 History tamsulosin 0.4 mg capsule 0.4 mg PO DAILY 09/14/24 09/14/24 History vitamin B complex 1 cap PO DAILY 09/14/24 09/14/24 History Allergies Allergy/AdvReac Type Severity Reaction Status Date / Time No Known Allergies Allergy Unverified 09/14/24 14:32 [No Known Allergies*] Physical Exam Vital signs: Vital Signs Temp 97.4 F 09/15/24 09:32 Pulse 96 09/15/24 09:32 Resp 21 H 09/15/24 09:32 BP 121/59 L 09/15/24 09:32 Pulse Ox 96 09/15/24 09:32 O2 Del Method Room Air 09/15/24 09:32 Intake & Output 09/14/24 09/15/24 09/15/24 18:59 06:59 18:59 Intake Total 1739 / 1739 Balance 1739 / 1739 Intake: Intake, IV Amount 1739 / 1739 0.9 % Sodium Chloride 1,689 ml 1689 / 1689 @ 1689 mls/hr IV .Q1H STA Rx#: [id number] cefEPime HCl/D5W 2 gm In 50 ml 50 / 50 @ 100 mls/hr IV ONCE ONE Rx#: [id number] Other: Weight 56.3 kg Weight 56.3 kg - Constitutional Present: no acute distress - Routine HEENT Exam Head: Present: normal inspection Eye: Present: EOMI - Routine Neck Exam Present: supple - Routine Respiratory Exam Absent: accessory muscle use - Routine Cardiovascular Exam Cardiovascular: Present: S1, S2 - Routine Abdominal Exam Present: distended, mass, soft. Absent: guarding - Routine Extremities Exam Present: pulses intact. Absent: pedal edema Comments: Right lower extremity significantly swollen all the way to the groin - Routine Skin Exam Present: intact - Routine Neurological Exam Present: alert, oriented X3 Hem/Onc Consult Result - Labs CBC & Chem 7: 09/15/24 04:34 09/15/24 04:34 Labs: Short CBC 09/14/24 09/15/24 Range/Units 15:05 04:34 WBC 34.8 H* 30.6 H* (4.8-10.8) X10*3/uL Hgb 9.2 L 8.4 L (14.0-18.0) g/dl Hct 29.7 L 27.5 L (42.0-52.0) % Plt Count 378 374 (160-400) X10*3/uL BMP 09/14/24 09/15/24 15:05 04:34 Sodium 139 140 Potassium 5.3 H 4.6 Chloride 105 108 Carbon Dioxide 22 23 BUN 44 H 45 H Creatinine 2.02 H 1.75 H Calcium 9.1 8.7 Liver Function 09/14/24 Range/Units 15:05 Total Bilirubin 0.3 (0.0-1.0) mg/dL Direct Bilirubin 0.1 (0.0-0.5) mg/dL AST 50 H (5-37) U/L ALT 35 (0-40) U/L Alkaline Phosphatase 107 (39-117) U/L Albumin 2.8 L (3.5-5.0) g/dL Urine 09/14/24 Range/Units 17:25 Urine Color Dark Yellow Urine Appearance Turbid Urine pH 5.5 (5.0-9.0) Ur Specific [place] 1.020 (1.005-1.025) Urine Protein 100 (2+) H (Neg-Trace) mg/dL Urine Glucose (UA) Negative (Negative) mg/dL Assessment and Plan Patient Active problem list reviewed?: Yes (1) Pelvic mass Status: Acute Assessment and plan: 1. This 88-year-old male with history of CAD, status post CABG presenting with right lower extremity swelling and significant weight loss in the last [address] abdomen/pelvis revealed large pelvic mass, malignant. Obstructs right distal ureter and causes moderate hydroureteronephrosis, hepatic metastasis measuring up to 5.4 cm. Malignant ascites with omental caking. The above diagnosis was explained to patient and his . He has metastatic disease, primary could be GI or originating from bladder or ureter. He has significant weight loss and his performance status is quite poor, he is bed-bound and declining rapidly as per his . I discussed option of biopsy to establish diagnosis. 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 would prefer no invasive procedures and would like to go home on hospice care. I agree with this decision, hospice consult can be placed. I thank you for the consultation. - Time Spent With Patient Time Spent with Patient (in minutes): 25
--- NOTE | 2024-09-15 11:06 | MHC.CM.PN ---
Addendum entered by Sophia Rocha 09/15/24 14:51: PT WILL DC HOME TODAY, [facility] WILL PROVIDE SOC TOMORROW PTS WILL TRANSPORT Original Note: CM MET WITH PT AND AT BEDSIDE PT LIVES AT HOME AND IS INDEPENDENT WITH CARE HE HAD NO SERVICES OR DME [employer] HE HAS NO HCP OR MOLST AT THIS TIME PCP: LOLA ROTHMAN IMM DELIVERED DCP: HOSPICE CONSULT REQUESTED PT WOULD LIKE TO DC HOME WITH HOSPICE TRANSPORT TBD
--- NOTE | 2024-09-15 14:22 | P.DS_ITS ---
DS: Providers Provider Date of Service: 09/15/24 Date of admission: 09/14/24 18:47 Date of discharge: 09/15/24 Primary care physician: Lula Atwood MD Consults: 09/14/24 18:29 Consult to General Surgery Routine Consulting Provider: [facility] General Surgeons Reason for consultation: pelvic mass Consult to Hematology / Oncology Routine Consulting Provider: [facility] Oncology/Hematology Reason for consultation: pelvic mass Consult to Urology Routine Consulting Provider: [facility] Urology Services Reason for consultation: pelvic mass/obstructive uropathy DS: Diagnosis Discharge Diagnosis (1) Pelvic mass: Status: Acute (2) Metastatic cancer: Status: Acute (3) Metastasis to liver: Status: Acute (4) Hydroureteronephrosis: Status: Acute (5) ANTHONY (acute kidney injury): Status: Acute (6) Moderate protein-calorie malnutrition: Status: Acute (7) Lactic acidosis: Status: Acute DS: Summary Hospital Course Hospital Course: from my admission H+P, 09/14/24: 88yo M with CAD s/p 4v CABG presenting with 4 days of worsening RLE swelling, lower abdominal pain, and unintentional 25 lg weight loss over past 2 months. Today had some blood in his urine. In the ED, found to have leukocytosis of 34.8k with 23% bands as well as ANTHONY with SCr 2.02 with baseline of 1 per [facility] records. Lactate of 3.8. No DVT on venous duplx US of the legs. CT of the abdomen and pelvis showed a large 12.8 cm pelvic mass; unclear whether it originates in the colon or the bladder. It is causing obstruction of the right distal ureter with moderate hydronephrosis. There are hepatic metastases and omental caking with ascites. He was given cefepime due to pyuria and bacteruria. He states he had a Cologuard 2-3 years ago that was normal. Prior colonoscopy over 10 years ago and no history of abnromality on scope. He was admitted to the hospitalist service with consultations from Oncology, General Surgery, and Urology. Ultimately, when confronted with the nature of the metastatic cancer, which is incurable, and his poor underlying functional status, he and his decided to go home with hospice services, which will be arranged through [facility]. Time Attestation Discharge Coordination Time (in mins): 40 Quality: Safe Use of Opioids Does Pt have an Active Cancer Diagnosis on the Problem List?: Yes Opioid Measure Date for [facility] Report: 08/16/24 Opioid Measure Time for [facility] Report: 14:28 Quality: Stroke Does the patient have a stroke diagnosis?: No Physical Exam Vital Signs: Vital Signs: Last Vital Signs Temp 97.6 F 09/15/24 12:56 Pulse 98 09/15/24 12:56 Resp 16 09/15/24 12:56 BP 117/72 09/15/24 12:56 Pulse Ox 96 09/15/24 12:56 O2 Del Method Room Air 09/15/24 12:56 BMI result Body Mass Index 17.8 Gen: in no acute distress but thin/cachectic with muscle wasting apparent HEENT: sclera anicteric, moist mucus membranes Neck: supple Lungs: clear to auscultation bilaterally Heart: regular rate and rhythm, no murmurs Abd: minimally distended Ext: 3+ RLE edema Skin: warm/well-perfused Neuro: alert and oriented x3, no focal findings Psych: appropriate affect DS: Data Data Completed and Pending Completed studies during hospitalization [Text1]: Laboratory Results WBC 30.6 X10*3/uL (4.8-10.8) H* 09/15/24 04:34 RBC 2.80 X10*6/uL (4.60-5.80) L 09/15/24 04:34 Hgb 8.4 g/dl (14.0-18.0) L 09/15/24 04:34 Hct 27.5 % (42.0-52.0) L 09/15/24 04:34 MCV 98.2 fL (80.0-98.0) H 09/15/24 04:34 MCH 30.0 pg (27.0-33.0) 09/15/24 04:34 MCHC 30.5 g/dl (31.0-36.0) L 09/15/24 04:34 RDW 16.1 % (11.0-16.0) H 09/15/24 04:34 Plt Count 374 X10*3/uL (160-400) 09/15/24 04:34 MPV 9.4 fL (9.4-12.4) 09/15/24 04:34 Immature Gran % (Auto) Cancelled 09/14/24 15:05 Neut % (Auto) Cancelled 09/14/24 15:05 Lymph % (Auto) Cancelled 09/14/24 15:05 Ashley % (Auto) Cancelled 09/14/24 15:05 Eos % (Auto) Cancelled 09/14/24 15:05 Baso % (Auto) Cancelled 09/14/24 15:05 Lymph # (Auto) Cancelled 09/14/24 15:05 Ashley # (Auto) Cancelled 09/14/24 15:05 Eos # (Auto) Cancelled 09/14/24 15:05 Baso # (Auto) Cancelled 09/14/24 15:05 Abs Immat Gran (auto) Cancelled 09/14/24 15:05 Absolute Neuts (auto) Cancelled 09/14/24 15:05 Absolute Nucleated RBC 0.000 X10*3/uL (0.0-0.012) 09/15/24 04:34 Nucleated RBC % (auto) 0.0 /100WBC (0.0-0.2) 09/15/24 04:34 Neutrophils % (Manual) 68 % (45-73) 09/14/24 15:05 Band Neutrophils % 23 % (3-5) H 09/14/24 15:05 Lymphocytes % (Manual) 3 % (20-40) L 09/14/24 15:05 Monocytes % (Manual) 4 % (2-11) 09/14/24 15:05 Eosinophils % (Manual) 2 % (0-4) 09/14/24 15:05 Abs Neuts (Manual) 31.7 X10*3/uL (2.0-8.3) H 09/14/24 15:05 Lymphocytes # (Manual) 1.0 X10*3/uL (1.2-4.9) L 09/14/24 15:05 Monocytes # (Manual) 1.4 X10*3/uL (0.1-1.2) H 09/14/24 15:05 Eosinophils # (Manual) 0.7 X10*3/uL (0.0-0.4) H 09/14/24 15:05 Toxic Granulation PRESENT 09/14/24 15:05 Toxic Vacuolation PRESENT 09/14/24 15:05 Platelet Estimate NORMAL (NORMAL) 09/14/24 15:05 Plt Morphology Comment NORMAL 09/14/24 15:05 RBC Morphology NORMAL 09/14/24 15:05 Smear Tech's Comments MANUAL DIFF 09/14/24 15:05 ESR 107 MM/HR (0-15) H 09/14/24 15:05 PT 12.3 SEC (10.9-12.4) 09/14/24 15:57 INR 1.1 (0.9-1.1) 09/14/24 15:57 APTT 27.3 SEC (26.0-36.8) 09/14/24 15:57 Sodium 140 mmol/L (135-145) 09/15/24 04:34 Potassium 4.6 mmol/L (3.3-5.1) 09/15/24 04:34 Chloride 108 mmol/L (96-108) 09/15/24 04:34 Carbon Dioxide 23 mmol/L (22-29) 09/15/24 04:34 Anion Gap 14 (12-20) 09/15/24 04:34 BUN 45 mg/dL (9-16) H 09/15/24 04:34 Creatinine 1.75 mg/dL (0.5-1.4) H 09/15/24 04:34 Estim Creat Clear Calc 24.1 09/15/24 04:34 Estimated GFR 37 09/15/24 04:34 Random Glucose 85 mg/dL (60-115) 09/15/24 04:34 Lactic Acid 3.8 mmol/L (0.5-2.0) H* 09/14/24 15:57 Lactic Acid F/U @ 2Hr 1.8 mmol/L (0.5-2.0) 09/14/24 18:18 Calcium 8.7 mg/dL (8.4-10.2) 09/15/24 04:34 Magnesium 2.2 mg/dL (1.6-2.6) 09/14/24 15:05 Total Bilirubin 0.3 mg/dL (0.0-1.0) 09/14/24 15:05 Direct Bilirubin 0.1 mg/dL (0.0-0.5) 09/14/24 15:05 AST 50 U/L (5-37) H 09/14/24 15:05 ALT 35 U/L (0-40) 09/14/24 15:05 Alkaline Phosphatase 107 U/L (39-117) 09/14/24 15:05 C-Reactive Protein 9.67 mg/dL (< or = 0.50) H 09/14/24 15:05 B-Natriuretic Peptide 159 pg/mL (<100) H 09/14/24 15:05 Total Protein 7.6 g/dL (6.5-8.0) 09/14/24 15:05 Albumin 2.8 g/dL (3.5-5.0) L 09/14/24 15:05 Lipase 14 U/L (8-78) 09/14/24 15:05 Carcinoembryonic Ag 4.00 ng/mL 09/15/24 04:34 Urine Color Dark Yellow 09/14/24 17: Urine Appearance Turbid 09/14/24 17:25 Urine pH 5.5 (5.0-9.0) 09/14/24 17:25 Ur Specific [place] 1.020 (1.005-1.025) 09/14/24 17: Urine Protein 100 (2+) mg/dL (Neg-Trace) H 09/14/24 17: Urine Glucose (UA) Negative mg/dL (Negative) 09/14/24 17: Urine Ketones Negative mg/dL (Negative) 09/14/24 17: Urine Blood Large (3+) (Negative) H 09/14/24 17: Urine Nitrite Negative (Negative) 09/14/24 17:25 Ur Leukocyte Esterase Moderate (2+) (Negative) H 09/14/24 17:25 Urine RBC >20 /HPF (0-2) H 09/14/24 17:25 Urine WBC >50 /HPF (0-5) H 09/14/24 17:25 Ur Squamous Epith Cells 11-20 /HPF (0-2) 09/14/24 17:25 Urine Bacteria Trace (None Seen) 09/14/24 17: Hyaline Casts 6-10 /LPF (0-2) 09/14/24 17:25 Granular Casts Present 09/14/24 17:25 Influenza Type A (PCR) NEGATIVE (Negative) 09/14/24 15:56 Influenza Type B (PCR) NEGATIVE (Negative) 09/14/24 15:56 RSV RNA Qual (PCR) NEGATIVE (Negative) 09/14/24 15:56 SARS-CoV-2 RNA (RT-PCR) NEGATIVE (Negative) 09/14/24 15:56 CT A/P+contrast 09/14/24 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 The definitive origin of the mass is not identified. The mass may originate from or invade the bladder and colon. The mass obstructs the right distal ureter and causes moderate hydroureteronephrosis. 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 There is malignant ascites with omental caking. Discharge Plan Discharge Anticipated Discharge Date/Time: 09/15/24 14:07 Patient Disposition: Hospice - Home Discharge Diagnosis: metastatic cancer acute kidney injury right hydroureteronephrosis Referrals: Lula Atwood MD [Primary Care Provider] - 1 Week Discharge Medications: New morphine concentrate 100 mg/5 mL (20 mg/mL) solution 5 mg PO Q3H PRN (Reason: pain/comfort) 15 Days Qty: 30 0RF Rx Instructions: Partial Fill upon patient request. lorazepam 0.5 mg tablet 0.5 mg PO Q6H PRN (Reason: anxiety/restlessness) 4 Days Qty: 16 0RF scopolamine base 1 mg over 3 days patch 3 day 1 patch transdermal Q72H 12 Days Qty: 4 0RF Rx Instructions: 1 patch behind ear Q72H for secretions Continued tamsulosin 0.4 mg Capsule 0.4 mg PO DAILY Discontinued atorvastatin 20 mg Tablet 20 mg PO DAILY aspirin 81 mg Tablet,Delayed Release (Dr/Ec) 81 mg PO DAILY carvedilol 3.125 mg Tablet 3.125 mg PO BIDWM Rx Instructions: must administer with a meal/food vitamin B complex [B Complex] Capsule 1 cap PO DAILY Discharge Orders: Discharge Order (Routine); Ordered 09/15/24 Ordered By: Avery Saunders Diet: Advance to usual diet Activity on Discharge: As tolerated Stand Alone Forms: Patient Portal Discharge page Print Language: Palestinian Care Plan Goals: palliation of symptoms Health Concerns: metastatic cancer acute kidney injury right hydroureteronephrosis Plan of Treatment: hospice care discontinue non-palliative medications take medications as needed for palliation of symptoms: - morphine for pain or shortness of breath - lorazepam for agitation or anxiety - scopolamine for secretions hospice service to meet with you tomorrow [09/16/24] at home Assessment: See Discharge Summary.
[2024-09-17 10:18] LABS: CA-125 11 U/mL (<35)
[2024-09-19 10:32] LABS: Carbohydrate Antigen 19-9 <3 U/mL (<34)
[2024-09-19 10:32] LABS: Carbohydrate Antigen 19-9 <3 U/mL (<34)
== END 2024-09-15 14:44 | disposition hospice, home (50) | DRG 723 ==
LOC: HO.ED 19:01 → HO.EDOVER 19:02
PROVIDERS: Physician Assistant; Surgery; Admitting Provider Family Medicine; Emergency Provider Emergency Medicine; PCP Internal Medicine; Visit Provider Family Medicine
DX: C76.3 Malignant neoplasm of pelvis (principal); C78.7 Secondary malignant neoplasm of liver and intrahepatic bile duct; N13.30 Unspecified hydronephrosis; R18.0 Malignant ascites; E44.0 Moderate protein-calorie malnutrition; Z68.1 Body mass index [BMI] 19.9 or less, adult; N17.9 Acute kidney failure, unspecified; R65.10 Systemic inflammatory response syndrome (SIRS) of non-infectious origin without acute organ dysfunction; Z66 Do not resuscitate; I25.10 Atherosclerotic heart disease of native coronary artery without angina pectoris; R31.0 Gross hematuria; Z95.1 Presence of aortocoronary bypass graft; Z20.822 Contact with and (suspected) exposure to COVID-19
CPT/HCPCS: 0241U; 36415; 71045; 74176; 80048; 80076; 81001; 82378; 83605; 83690; 83735; 83880; 85007; 85027; 85610; 85652; 85730; 86140; 86301; 86304; 87040; 87086; 93005; 93971; 99285; J0692; J0696

== ENCOUNTER → 2024-09-14 14:38 | Outpatient (BNV) | payer MEDICARE, SELFPAY | PROVIDERS: Admitting Provider Family Medicine; Emergency Provider Emergency Medicine; PCP Internal Medicine; Visit Provider Internal Medicine Cardiovascular Disease | DX: R94.31 Abnormal electrocardiogram [ECG] [EKG] (principal) | CPT/HCPCS: 93010 ==

== ENCOUNTER → 2024-09-14 14:53 | Outpatient (BNV) | payer MEDICARE, SELFPAY | PROVIDERS: Emergency Provider Emergency Medicine; PCP Internal Medicine; Visit Provider Radiology Diagnostic Radiology | DX: C76.3 Malignant neoplasm of pelvis (principal); R18.0 Malignant ascites; N13.1 Hydronephrosis with ureteral stricture, not elsewhere classified; R22.41 Localized swelling, mass and lump, right lower limb; R06.89 Other abnormalities of breathing; Z95.1 Presence of aortocoronary bypass graft | CPT/HCPCS: 71045; 74176; 93971 ==

== ENCOUNTER → 2024-09-14 18:47 | Outpatient (BNV) | payer MEDICARE, SELFPAY | PROVIDERS: Admitting Provider Family Medicine; Emergency Provider Emergency Medicine; PCP Internal Medicine; Visit Provider Surgery | DX: R19.00 Intra-abdominal and pelvic swelling, mass and lump, unspecified site (principal) | CPT/HCPCS: 99222 ==

== ENCOUNTER → 2024-09-14 18:47 | Outpatient (BNV) | payer MEDICARE, SELFPAY | PROVIDERS: Admitting Provider Family Medicine; Emergency Provider Emergency Medicine; PCP Internal Medicine; Visit Provider Internal Medicine | DX: R19.00 Intra-abdominal and pelvic swelling, mass and lump, unspecified site (principal) | CPT/HCPCS: 99222 ==

== ENCOUNTER → 2024-09-14 18:47 | Outpatient (BNV) | payer MEDICARE, SELFPAY | PROVIDERS: Admitting Provider Family Medicine; Emergency Provider Emergency Medicine; PCP Internal Medicine; Visit Provider Family Medicine | DX: R19.09 Other intra-abdominal and pelvic swelling, mass and lump (principal); C79.9 Secondary malignant neoplasm of unspecified site; C78.7 Secondary malignant neoplasm of liver and intrahepatic bile duct; N13.30 Unspecified hydronephrosis; N17.9 Acute kidney failure, unspecified; E44.0 Moderate protein-calorie malnutrition; E87.20 Acidosis, unspecified | CPT/HCPCS: 99223; 99239 ==